=== PATIENT | female | born 1970 | race Caucasian/White ===

== ENCOUNTER → 2020-01-15 | Outpatient (CLI) | payer BC, SELFPAY ==
--- NOTE | 2020-01-15 | ASPS_PTH ---
PATIENT: KADEEM BURRIS LOC: [facility] U#:[id number] AGE/SX: 49/F ROOM: RE01/15/[address]: Dr. Jacob Lima MD : 1970 BED: DIS: 01/15/2020 SPEC #: [id number] RECD: 01/15/20 16:41 STATUS: BARBARA VIVEK #: [id number] EMMANUEL: 01/15/20 00:[address]: Jacob Lima DEPT: CYTOLOGY RECD BY: Carlos Loyola ENTERED: 01/16/20 07:36 SP TYPE: ASPIRATION OTHR DR: Dr. Kadeem Williamson MD Tissues: A - Thyroid gland, NOS B - Lymph node, NOS Procedures: Special Stain Group II Cytology Other HEADER OPERATION: Fine needle aspiration right thyroid and cervical lymph node PRE-OP DIAGNOSIS: Right thyroid nodule and enlarged cervical lymph node TISSUE SUBMITTED: A - Right thyroid slides x4, B - Left cervical lymph nodes slides x6 DIAGNOSIS CYTOLOGY A. Fine needle aspiration, right thyroid nodule (smears): Rare follicular cells are present. See comment. B. Fine needle aspiration, left cervical lymph node (smears): Polymorphous lymphocytes and epithelioid/histiocytic cells. See comment. AM:manuel 01/16/20 COMMENT A. Rare follicular cells are identified. The paucity of follicular cells precludes for further evaluation. Clinical correlation is necessary. B. Clinical correlation is suggested. An incisional or excisional biopsy is recommended for further evaluation. Case has been reviewed in consultation with Dr. Lundy who concurs with the above diagnosis. IDC:[facility] CYTOLOGY STUDY Slides are reviewed. CYTOLOGY GROSS A - Received are four smears labeled with the patient's name and designated per the requisition as right thyroid. Submitted for staining. B - Received are six smears labeled with the patient's name and designated per the requisition as left cervical lymph node. Submitted for staining. / manuel 01/16/20 TC:5 CPT: 87232 x2
== END | disposition home or self-care (01) ==
LOC: LABSPEC 16:51
PROVIDERS: PCP Internal Medicine; Referring Provider Surgery; Visit Provider Surgery
DX: E04.1 Nontoxic single thyroid nodule (principal)
CPT/HCPCS: 88161; 88313

== ENCOUNTER → 2020-07-21 | Outpatient (CLI) | payer BC, SELFPAY ==
[2020-01-15 15:43] VITALS: BMI 35.7
--- NOTE | 2020-07-21 08:16 | US_ITS ---
STUDY: THYROID ULTRASOUND REASON FOR EXAM: Female, 50 years old. Thyroid nodule TECHNIQUE: Ultrasound evaluation of the thyroid was performed with real-time and static gupta-scale imaging. COMPARISON: None. FINDINGS: RIGHT LOBE: The right lobe of the thyroid gland measures 3.7 cm x 1 cm x 0.6 cm. There is a heterogeneous echotexture. 2 hypoechoic solid nodules are seen in the upper pole. The larger measures 9 mm x 7 mm x 4 mm. LEFT LOBE: The left lobe of the thyroid gland is enlarged and measures 5.6 x 2 x 1.6 x 1.7 cm. There is a heterogeneous echotexture. There are no demonstrated solid, cystic or complex lesions. ISTHMUS: The isthmus measures 4.5 mm. There is evidence of a benign appearing bilateral cervical lymph nodes. The largest on the left measures 1.3 cm x 1.7 cm x 0.5 cm. The largest lymph node in the left-sided neck measures 2.1 cm x 0.9 cm x 0.6. US/Thyroid IMPRESSION: Heterogeneous appearance of both lobes of the thyroid gland. There is enlargement of the left thyroid gland without any nodule within it. 2. Subcentimeter hypoechoic nodule seen in the upper pole of the right lobe of the thyroid. Benign appearing bilateral cervical lymph nodes. Electronically Signed: Cleve Crowder, at 10:39 EDT , Service support ,
== END | disposition home or self-care (01) ==
LOC: US 08:16
PROVIDERS: PCP Internal Medicine; Referring Provider Surgery; Visit Provider Surgery
DX: E03.8 Other specified hypothyroidism (principal); E04.1 Nontoxic single thyroid nodule; E06.3 Autoimmune thyroiditis; R59.0 Localized enlarged lymph nodes
CPT/HCPCS: 76536

== ENCOUNTER 2022-01-27 08:25 | Outpatient (CLI) | payer BC, SELFPAY ==
[2022-01-27 12:15] LABS: Hematocrit 39.3 % (37-47); Hemoglobin 12.3 g/dL (12.0-15.0)
[2022-01-27 12:35] LABS: Vitamin D,25 Hydroxy 40.7 ng/mL
[2022-01-27 12:40] LABS: Ferritin 139 ng/mL (8-252); T4 Free Direct 1.06 ng/dL (0.76-1.46); Thyroid Stim Hormone (TSH) 0.27 uIU/mL (0.358-3.74)
[2022-01-27 13:03] LABS: Hemoglobin A1c 6.3 % (3.8-5.6)
[2022-01-31 13:07] LABS: Testosterone, % Free 3.04 % (0.50-2.80); Testosterone, Free 0.61 ng/dL (0.10-0.85); Testosterone, Total 20 ng/dL (4-50)
== END 2022-01-27 23:59 | disposition home or self-care (01) ==
PROVIDERS: PCP Internal Medicine; Referring Provider Internal Medicine Endocrinology, Diabetes & Metabolism; Visit Provider Internal Medicine Endocrinology, Diabetes & Metabolism
DX: E03.8 Other specified hypothyroidism (principal); E06.3 Autoimmune thyroiditis; E04.1 Nontoxic single thyroid nodule; R73.03 Prediabetes; E66.9 Obesity, unspecified; E55.9 Vitamin D deficiency, unspecified
CPT/HCPCS: 36415; 82306; 82627; 82728; 83036; 84402; 84403; 84439; 84443; 85014; 85018; 82626

== ENCOUNTER → 2022-02-17 | Outpatient (CLI) | payer BC, SELFPAY ==
--- NOTE | 2022-02-17 07:48 | US_ITS ---
INDICATION: TI-RAD please, follow up nodules EXAMINATION: Ultrasound US Thyroid (eg thyroid, parathyroid, parotid) TECHNIQUE: Geiger scale and color doppler imaging was performed of the thyroid gland. COMPARISON: 07/21/2020. FINDINGS: RIGHT THYROID LOBE: The right lobe of the thyroid gland demonstrates heterogeneous echogenicity with unremarkable vascularity, unremarkable size shape, 2 hypoechoic nodules are visualized within the left lobe of the thyroid gland . The right lobe of the thyroid gland measures 4.1 x 1.1 x 1.4 cm demonstrating slight increase in size in comparison to the prior study where it had measured 3.7 x 1.0 x 0.6 cm. 2 nodules are visualized within the right lobe of the thyroid gland. #1- Location: Upper pole Size: 0.6 x 0.5 x 0.4 cm demonstrating decrease in size in comparison to the prior study where it had measured 0.8 x 0.7 x 0.4 cm . Composition: 0 Echogenicity: 2 Shape: 0 Margins: 0 Echogenic Foci: 0 Total points 2, TR 2 nodule. #2- Location: Upper pole Size: 0.5 x 0.5 x 0.2 cm demonstrating decrease in size in comparison to the prior study where it measured 0.9 x 0.7 x 0.4 . Composition: 0 Echogenicity: 2 Shape: 0 Margins: 0 Echogenic Foci: 0 Total points 2, TR 2 nodule. LEFT THYROID LOBE: The left lobe of the thyroid gland demonstrates heterogeneous echogenicity with unremarkable vascularity, no evidence of nodules within the left lobe of the thyroid gland.. The left lobe of the thyroid gland measures 5.6 x 1.6 x 1.7 cm demonstrating slight decrease in size in comparison to the prior study where it had measured 5.9 x 1.6 x 1.8 cm. ISTHMUS: The isthmus measures 0.5 cm in AP diameter. No thyroid nodules are present. The largest lymph node seen the right neck measures 1.7 x 1.0 x 0.5 cm cm. The largest lymph node in the left neck measured 2.1 x 1.3 x 0.8 cm. Extensive atherosclerotic disease visualized in the carotid vessels most prominent in the right common carotid artery. US/Thyroid IMPRESSION: 2 cystic TR 2 nodules is visualized in the right lobe of the thyroid gland the largest of which measures 0.6 cm demonstrate decrease in size in comparison to the prior study. Benign-appearing bilateral cervical lymphadenopathy. TI-RADS follow up recommendations: TR1: Benign (0pts) No FNA biopsy. TR2: Not suspicious (2 pts) No FNA biopsy. TR3: Mildly suspicious (3 pts) FNA biopsy if nodule at least 2.5cm; follow if at least 1.5cm. TR4: Moderately suspicious (4-6 pts) FNA biopsy if nodule at least 1.5cm; follow if at least 1 cm. TR5: Highly suspicious (at least 7 pts) FNA if nodule at least 1cm; follow if at least 0.5cm. Electronically Signed: Noe Goldsmith MD at 9:59 EDT Reading Location ID and State: [facility] / [place] Tel , Service support ,
--- NOTE | 2022-02-17 08:17 | BD_ITS ---
STUDY: DUAL ENERGY X-RAY ABSORPTIOMETRY / DXA REASON FOR EXAM: Female, 51 years old. Screening, menopause TECHNIQUE: Bone Mineral Density (BMD) measurements of lumbar spine and bilateral hips were obtained. COMPARISON: None. FINDINGS: Lumbar Spine (L1-L4): g/cm2 (0.897) / T-score (-1.4) / Z-score (-0.4) Findings are suggestive of osteopenia with a low fracture risk. Left Femur Total: g/cm2 (0.895) / T-score (0.4) / Z-score (0.2) Left Femoral Neck: g/cm2 (0.791) / T-score (-0.5) / Z-score (0.5) Right Femur Total: g/cm2 (0.895) / T-score (-0.4) / Z-score (0.2) Right Femoral Neck: g/cm2 (0.791) / T-score (-0.5) / Z-score (0.5) BD/Dexa Bone Density Study IMPRESSION: The patient is considered osteopenic as outlined below according to World Okry Organization (WHO) criteria with a low fracture risk. Reference Information: The T-score is the number of standard deviations above or below the standard which is normal for young adults at their peak bone mineral density. The World Health Organization (WHO) interprets the T-scores as follows: Above -1 Normal bone density Between -1 and -2.5 Osteopenia Equal to / or below -2.5 Osteoporosis As a practical clinical guideline, osteopenia may be graded as follows: Mild -1 through -1.5 Moderate -1.6 through -2.0 Severe -2.1 through -2.4 The Z-score is the number of standard deviations above or below age-matched controls. A Z-score of less than -1.5 would be considered abnormal. References: 1. NIH Osteoporosis and Related Bone Diseases www osteo.org 2. International Society for Clinical Densitometry www iscd.org 3. National Osteoporosis Foundation www nof.org Electronically Signed: Cleve Crowder MD at 15:27 EDT ,
== END | disposition home or self-care (01) ==
LOC: US 07:46
PROVIDERS: PCP Internal Medicine; Referring Provider Internal Medicine Endocrinology, Diabetes & Metabolism; Visit Provider Internal Medicine Endocrinology, Diabetes & Metabolism
DX: M85.80 Other specified disorders of bone density and structure, unspecified site (principal); E04.1 Nontoxic single thyroid nodule; Z78.0 Asymptomatic menopausal state; Z13.820 Encounter for screening for osteoporosis
CPT/HCPCS: 76536; 77080